=== PATIENT | male | born 1960 | race Caucasian/White ===

== ENCOUNTER → 2018-05-01 | Outpatient (REF) | payer BC ==
[2018-05-01 19:01] LABS: HEMATOCRIT 46.1 % (42.0-52.0); HEMOGLOBIN 15.8 g/dl (13.5-17.5); MEAN CORPUSCULAR HEMOGLOBIN 30.9 pg (27.0-33.0); MEAN CORPUSCULAR HGB CONC 34.3 g/dl (32.0-36.5); MEAN CORPUSCULAR VOLUME 90.2 fl (80.0-96.0); PLATELET COUNT, AUTOMATED 262 10^3/uL (150-450); RED BLOOD COUNT 5.11 10^6/uL (4.30-6.10); RED CELL DISTRIBUTION WIDTH 12.2 % (11.5-14.5); WHITE BLOOD COUNT 9.3 10^3/uL (4.0-10.0)
[2018-05-01 19:09] LABS: ALBUMIN 3.8 GM/DL (3.2-5.2); ALBUMIN/GLOBULIN RATIO 1.15 (1.00-1.93); ALKALINE PHOSPHATASE 96 U/L (45-117); ALT/SGPT 36 U/L (12-78); ANION GAP 8 MEQ/L (8-16); AST/SGOT 21 U/L (7-37); BILIRUBIN,TOTAL 0.4 MG/DL (0.2-1.0); BLOOD UREA NITROGEN 14 MG/DL (7-18); CALCIUM LEVEL 8.5 MG/DL (8.5-10.1); CARBON DIOXIDE LEVEL 29 MEQ/L (21-32); CHLORIDE LEVEL 100 MEQ/L (98-107); CHOLESTEROL LEVEL 195 MG/DL (<200); CHOLESTEROL RISK RATIO 3.979 (<5); CREATININE FOR GFR 1.18 MG/DL (0.70-1.30); FREE T4 1.11 NG/DL (0.76-1.46); GLOMERULAR FILTRATION RATE > 60.0 (>56); GLUCOSE, FASTING 88 MG/DL (70-100); HDL CHOLESTEROL 49 MG/DL (>40); LDL CHOLESTEROL 68 MG/DL (<100); NON-HDL-C 146 MG/DL; POTASSIUM SERUM 4.5 MEQ/L (3.5-5.1); PSA SCREENING 1.1 NG/ML (< 4.0); SODIUM LEVEL 137 MEQ/L (136-145); THYROID STIMULATING HORMONE 0.503 uIU/ML (0.358-3.740); TOTAL PROTEIN 7.1 GM/DL (6.4-8.2); TRIGLYCERIDES LEVEL 392 MG/DL (<150)
[2018-05-06 00:06] LABS: TESTOSTERONE FREE (DIRECT) 5.4 pg/mL (7.2-24.0)
== END ==
LOC: M SFHCADAM 13:49
DX: K21.9 Gastro-esophageal reflux disease without esophagitis (principal); E78.5 Hyperlipidemia, unspecified; Z12.5 Encounter for screening for malignant neoplasm of prostate; N52.9 Male erectile dysfunction, unspecified

== ENCOUNTER 2018-12-10 12:05 | Emergency (ER) | payer BC ==
[2018-12-10] MEDS ORDERED: KETOROLAC 30 MG/ML VIAL (J1885) IV ONE (14:00)
[2018-12-10] MEDS ORDERED: NS 1,000 ML IV ONE (14:00)
[2018-12-10] MEDS ORDERED: ONDANSETRON 4MG/2ML VIAL (J2405) IV ONE (14:00)
[2018-12-10 14:19] LABS: BILIRUBIN, URINE MANUAL NEGATIVE (NEGATIVE); GLUCOSE, URINE (UA) MANUAL NEGATIVE (NEGATIVE); KETONE, URINE MANUAL NEGATIVE (NEGATIVE); UROBILINOGEN, URINE MANUAL NORMAL (NORMAL)
[2018-12-10 14:47] LABS: BASO # 0.1 10^3/uL (0.0-0.2); BASO % 0.7 % (0.0-1.0); EOS # 0.1 10^3/uL (0.0-0.50); EOS % 0.5 % (0.0-3.0); HEMATOCRIT 48.5 % (42.0-52.0); HEMOGLOBIN 16.8 g/dl (13.5-17.5); LYMPH # 1.7 10^3/uL (1.5-4.5); LYMPH % 12.4 % (24.0-44.0); MEAN CORPUSCULAR HEMOGLOBIN 31.6 pg (27.0-33.0); MEAN CORPUSCULAR HGB CONC 34.6 g/dl (32.0-36.5); MEAN CORPUSCULAR VOLUME 91.2 fl (80.0-96.0); MONO # 0.9 10^3/uL (0.0-0.8); MONO % 6.2 % (0.0-5.0); NEUTROPHILS # 10.8 10^3/uL (1.8-7.7); NEUTROPHILS % 78.7 % (36.0-66.0); PLATELET COUNT, AUTOMATED 297 10^3/uL (150-450); RED BLOOD COUNT 5.32 10^6/uL (4.30-6.10); WHITE BLOOD COUNT 13.7 10^3/uL (4.0-10.0)
[2018-12-10 15:06] LABS: ALBUMIN 3.5 GM/DL (3.2-5.2); ALT/SGPT 30 U/L (12-78); BILIRUBIN,DIRECT 0.2 MG/DL (0.0-0.2); BILIRUBIN,TOTAL 0.8 MG/DL (0.2-1.0); BLOOD UREA NITROGEN 12 MG/DL (7-18); CALCIUM LEVEL 8.6 MG/DL (8.8-10.2); CARBON DIOXIDE LEVEL 24 MEQ/L (21-32); CHLORIDE LEVEL 101 MEQ/L (98-107); CREATININE FOR GFR 1.07 MG/DL (0.70-1.30); GLOMERULAR FILTRATION RATE > 60.0 (>49); GLUCOSE, FASTING 112 MG/DL (70-100); LIPASE 69 U/L (73-393); POTASSIUM SERUM 4.4 MEQ/L (3.5-5.1); SODIUM LEVEL 133 MEQ/L (136-145); TOTAL PROTEIN 6.7 GM/DL (6.4-8.2)
[2018-12-10] MEDS ORDERED: ISOVUE-370 76% 100ML VIAL (Q9967) As Ordered ONE (15:23)
--- NOTE | 2018-12-10 16:08 | REP ---
CT of the abdomen and pelvis with IV contrast, without bowel contrast: There are no comparisons. The visualized lung pinedo are unremarkable. There is a small volume of abdominal ascites at the lateral margins of the liver and spleen and in the dependent pelvis. There is wall thickening of the descending colon, sigmoid colon and rectosigmoid colon. This is compatible with colitis in the appropriate clinical setting. There is no pneumoperitoneum. The hepatic parenchyma, gallbladder, pancreas, spleen, adrenals, kidneys and abdominal aorta are unremarkable. Pelvis: The bladder is unremarkable. There is no adenopathy. Impression: The findings compatible with colitis of the descending colon and sigmoid colon in the appropriate clinical setting. There is ascites as described. Electronically Signed by Pawel Diallo MD 12/10/2018 04:00 P
[2018-12-10] MEDS ORDERED: CIPR-249 PO (16:20)
[2018-12-10] MEDS ORDERED: FLAG500T PO (16:20)
[2018-12-10] MEDS ORDERED: ZOFR4TAB16 PO (16:20)
[2018-12-10 17:23] VITALS: BP 133/89
== END 2018-12-10 17:34 | disposition home or self-care (01) ==
LOC: M ED 12:05
DX: K52.9 Noninfective gastroenteritis and colitis, unspecified (principal); R18.8 Other ascites; K21.9 Gastro-esophageal reflux disease without esophagitis; H81.49 Vertigo of central origin, unspecified ear
CPT/HCPCS: 74177; 80048; 80076; 83690; 85025; 87507; 96374; 96375; 99284; J1885; J2405; Q9967

== ENCOUNTER → 2018-12-26 | Outpatient (CLI) | payer BC ==
[~2018-12-26] MED LIST: CIPR-249 PO; FLAG500T PO; ZOFR4TAB16 PO
--- NOTE | 2018-12-26 10:34 | REP ---
Clinical: Cough . Comparison: 03/10/2015 . Technique: PA and lateral. Findings: The mediastinum and cardiac silhouette are normal. The lung pinedo demonstrate chronic-appearing changes without acute consolidation, effusion, or pneumothorax. The skeletal structures are intact and normal. Impression: 1. Chronic-appearing changes. If the patient remains symptomatic consider chest CT for further investigation. Electronically Signed by Surinder Joiner MD 12/26/2018 10:26 A
== END ==
LOC: M ADAMS 09:48
PROVIDERS: ATTEND Family Medicine
DX: R05 Cough (principal)

== ENCOUNTER 2019-02-27 10:18 | Inpatient (IN) | payer BC ==
[~2019-02-27] VITALS: Ht 185.4 cm; Wt 88.6 kg
[2019-02-27 11:13] LABS: BASO # 0.1 10^3/uL (0.0-0.2); BASO % 0.7 % (0.0-1.0); EOS # 0.1 10^3/uL (0.0-0.5); EOS % 0.5 % (0.0-3.0); LYMPH # 1.8 10^3/uL (1.5-5.0); LYMPH % 11.3 % (24.0-44.0); MEAN CORPUSCULAR HEMOGLOBIN 31.9 pg (27.0-33.0); MEAN CORPUSCULAR VOLUME 91.1 fl (80.0-96.0); MONO # 1.1 10^3/uL (0.0-0.8); NEUTROPHILS # 12.3 10^3/uL (1.5-8.5); NEUTROPHILS % 79.6 % (36.0-66.0); PLATELET COUNT, AUTOMATED 329 10^3/uL (150-450); RED BLOOD COUNT 6.21 10^6/uL (4.30-6.10); WHITE BLOOD COUNT 15.5 10^3/uL (4.0-10.0)
[2019-02-27 11:16] LABS: HEMATOCRIT 56.6 % (42.0-52.0); HEMOGLOBIN 19.8 g/dl (13.5-17.5)
[2019-02-27 11:45] LABS: ALBUMIN 3.8 GM/DL (3.2-5.2); BILIRUBIN,DIRECT 0.2 MG/DL (0.0-0.2); BILIRUBIN,TOTAL 0.7 MG/DL (0.2-1.0); CALCIUM LEVEL 9.3 MG/DL (8.8-10.2); CREATININE FOR GFR 1.47 MG/DL (0.70-1.30); POTASSIUM SERUM 4.6 MEQ/L (3.5-5.1)
[2019-02-27] MEDS ORDERED: MORPHINE 4 MG/ML 1ML VIAL/SYRINGE (J2270) IV ONE (12:30)
[2019-02-27] MEDS ORDERED: NS 1,000 ML IV ONE (12:30)
[2019-02-27] MEDS ORDERED: ONDANSETRON 4MG/2ML VIAL (J2405) IV ONE (12:30)
[2019-02-27] MEDS ORDERED: ISOVUE-370 76% 100ML VIAL (Q9967) As Ordered ONE (12:32)
[2019-02-27] MEDS ORDERED: NS 1,000 ML IV SCH (15:30)
--- NOTE | 2019-02-27 15:34 | REP ---
HISTORY: Lower abdominal pain. COMPARISON: 11/30/2016 which showed findings consistent with left-sided colitis. CONTRAST: 100 mL Isovue-370. There is no change in the lung bases. There are no pleural or pericardial effusions. There is free fluid in the abdomen which has increased slightly compared to the prior exam. The liver, gallbladder, spleen, pancreas, adrenal glands and kidneys are within normal limits and unchanged. The abdominal aorta and periaortic regions are within normal limits and unchanged. The bowel loops are noncontrast opacified limiting evaluation of them. The descending colon mural thickening seen on the prior examination appears to have improved. The degree of pericolonic fatty infiltration involving the descending colon has improved. There is colonic diverticulosis, status quo. There is no evidence of free air. CT PELVIS: The dangelo of the sigmoid colon appear thickened and there is perisigmoidal fatty infiltration. The appearance of this has increased compared to the prior exam. There is free fluid in the pelvis, status quo. There is no evidence of pelvic sidewall or inguinal adenopathy. Bone window technique throughout the exam, shows no change in the osseous structures. IMPRESSION: 1. The amount of free fluid in the abdomen has increased compared to the prior exam. 2. Although the mural thickening seen involving the descending colon has improved, the findings involving the sigmoid colon have worsened. 3. Other findings as described above. Electronically Signed by Faheem Masters DO 02/27/2019 04:33 P
[2019-02-27] MEDS ORDERED: CIPROFLOXACIN 400 MG in IV 1 EA IV ONE (18:00)
[2019-02-27] MEDS: NS 1,000 ML IV SCH ×2 (18:21→23:39)
[2019-02-27] MEDS ORDERED: metroNIDAZOLE 500 MG in IV 1 EA IV ONE (19:00)
[2019-02-27 21:01] VITALS: BP 148/87
--- NOTE | 2019-02-27 21:01 | HPE ---
DATE OF ADMISSION: 02/27/2019 CHIEF COMPLAINT: Colitis. HISTORY: Gonzalo Pollock was admitted with colitis. He had been watery stools, lower abdominal pain for about 24 hours, admitted with the same on 12/10/2018. Gastrointestinal (GI) panel was negative. Treated with Cipro and Flagyl. Returned to normal. He has had no rectal bleeding or passing any pus in his stool, but he has had mucousy, watery stool. He had a normal colonoscopy 2013 and 2015 with adenomatous colon polyps, retrieved on both occasions. This was done by Dr. Hung. 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 He had vertigo attack 2014. He had a normal stress test January 2017. He has a history of erectile dysfunction, for which he uses Cialis or Viagra. MEDICATIONS: Cialis 20 mg as needed. REVIEW OF SYSTEMS: As above, otherwise negative. FAMILY HISTORY: Noncontributory. PHYSICAL EXAMINATION: VITAL SIGNS: Per flow sheet. Alert, conversant in no distress. Pupils equal, round, reactive to light. Tympanic membranes (TMs) and oropharynx benign. NECK: No masses. LUNGS: Clear. HEART: Regular rate and rhythm without murmur. ABDOMEN: Soft, mildly tender in both lower quadrants, more right than the left. No guarding, rebound, or referred pain. EXTREMITIES: No clubbing, cyanosis, or edema. Normal strength in the arms and legs. No warmth, redness or swelling in his joints. No diagnostic skin rashes. LABORATORY DATA: Sodium 135, potassium 4.6, BUN 18, glucose 140. White count 15.5, hemoglobin 19.8, platelets 329 (baseline hemoglobin around 16). CT scan of the abdomen and pelvis shows free fluid in the pelvis, mural thickening involving the descending colon has improved compared to previous CT from November 2018, but the thickening in the sigmoid colon has increased. IMPRESSION: 1. Colitis. Etiology is unknown. Suspect he was developing some inflammatory bowel disease. I ordered an inflammatory bowel disease panel as well as gastrointestinal (GI) (discussed with Dr. Hung). Will treat him with Cipro and Flagyl pending results of GI panel. 2. Polycythemia. I think this reflects his level of volume depletion, and I have ordered some IV saline for him. PLAN: Hydration, antibiotic therapy, and GI consult with a presumed endoscopy next week.
[2019-02-27] MEDS ORDERED: ACETAMINOPH W/CODEINE #3 TAB UD PO PRN (21:15)
[2019-02-28] MEDS: metroNIDAZOLE 500 MG in IV 1 EA IV SCH ×3 (04:09→19:56)
[2019-02-28] MEDS: NS 1,000 ML IV SCH ×4 (04:09→19:56)
[2019-02-28] MEDS: CIPROFLOXACIN 400 MG in IV 1 EA IV SCH ×2 (05:29→17:32)
[2019-02-28 06:25] VITALS: BP 115/72
[2019-02-28 07:29] LABS: HEMATOCRIT 40.2 % (42.0-52.0); MEAN CORPUSCULAR HEMOGLOBIN 30.7 pg (27.0-33.0); MEAN CORPUSCULAR HGB CONC 33.3 g/dl (32.0-36.5); RED BLOOD COUNT 4.37 10^6/uL (4.30-6.10)
[2019-02-28 07:44] LABS: HEMOGLOBIN 13.4 g/dl (13.5-17.5); PLATELET COUNT, AUTOMATED 208 10^3/uL (150-450)
[2019-02-28 07:45] LABS: BLOOD UREA NITROGEN 14 MG/DL (7-18); CALCIUM LEVEL 7.5 MG/DL (8.8-10.2); CARBON DIOXIDE LEVEL 27 MEQ/L (21-32); CHLORIDE LEVEL 106 MEQ/L (98-107); CREATININE FOR GFR 1.11 MG/DL (0.70-1.30); GLOMERULAR FILTRATION RATE > 60.0 (>49); GLUCOSE, FASTING 107 MG/DL (70-100); POTASSIUM SERUM 3.7 MEQ/L (3.5-5.1); SODIUM LEVEL 138 MEQ/L (136-145)
[2019-02-28] MEDS ORDERED: FLUBLOK(EGG FREE)(QUAD)INFLUENZA VACC 0.5ML SYRINGE (90682)18YRS&OLDER IM ONE (09:00)
[2019-02-28 10:00] VITALS: BP 114/73
--- NOTE | 2019-02-28 10:29 | CR ---
DATE OF CONSULTATION: 02/28/2019 INPATIENT REQUESTING PHYSICIAN: Dr. Rolf Fuentes. REASON FOR CONSULTATION: Abdominal pain, diarrhea, colitis. HISTORY OF PRESENT ILLNESS: Mr. Pollock is a patient known to me from previous endoscopies who is overall quite healthy. He had an episode of some type of a colitis back in October 2016 when he presented to the emergency room with abdominal pain and nonbloody diarrhea for 1-2 days. He was diagnosed with a nonspecific colitis which he was treated with Cipro and Flagyl empirically and promptly improved as an outpatient within 2-3 days. Since that time, he has had no issues with his GI tract. However, on 02/27/2019 in the morning, he awoke with severe abdominal cramping and nonbloody diarrhea. He returns to the emergency room and a repeat CT once again is suggestive of a colitis. I note that nobody else in the family is ill. He does not have chronic GI problems in general except for the episode in October earlier this year. PAST MEDICAL HISTORY: Unremarkable. MEDICATIONS: - as needed Cialis FAMILY HISTORY: Unremarkable. REVIEW OF SYSTEMS: Unremarkable. PHYSICAL EXAMINATION: Temperature 98.6, heart rate is 88, respirations 14-16. General: He is awake, alert, oriented times three in mild abdominal distress but nontoxic in appearance. Head, eyes, ears, nose and Throat: Grossly without abnormality. Neck: Supple. No lymphadenopathy, thyromegaly. Chest is clear bilaterally. Heart is regular rate and rhythm, S1, S2. No murmurs or gallops. Abdomen is soft, mild tenderness diffusely. There is no rebound tenderness or masses felt. Rectal: Examination is deferred. LABORATORY FINDINGS: WBC is 15.5, hemoglobin 19.8, RDW is 12.7, MCV is 91, platelet count is 329. Sodium 135, potassium 4.6, chloride 101, BUN 18, creatinine 1.47. Liver enzymes are normal. Lipase is normal. GI panel is positive for enteropathogenic E-coli. CT abdomen and pelvis dated 02/27/2019: Impression: 1. The amount of free fluid in the abdomen has increased compared to prior exam. 2. Although the mural thickening seen involving the descending colon has improved, the findings involving the sigmoid colon have worsened. 3. Other findings as described above. IMPRESSION: 1. Recurrent colitis per stool testing suspicious for infectious. RECOMMENDATIONS: 1. IV antibiotics, we will see progress on antibiotics in the next 2-3 days and decide if colonoscopy indicated. The patient has no significant GI history. However, these two successive episodes of apparent colitis may need to be evaluated further to rule out a chronic inflammatory process if antibiotics do not provide prompt relief of his symptoms.
[2019-02-28 16:39] VITALS: BP 136/83
--- NOTE | 2019-02-28 17:43 | IPNPDOC ---
Subjective Date Seen The patient was seen on 02/28/19. Subjective Chief Complaint/HPI Mr. Pollock reports that his abdominal pain is improved from where it was the day before. He still is having significant pain though. Dr. Moffett did see him today and felt that this was most likely colitis related to the enteropathogenic Escherichia coli. If he is not improved after antibiotic treatment he will consider an endoscopic procedure, but right now he is not planning. General: Denies: Normal Appetite Constitutional: Denies: Chills, Fever Pulmonary: Denies: Dyspnea, Cough Cardiovascular: Denies: Chest Pain, Palpitations Gastrointestinal: Reports: Abdominal Pain; Denies: Vomiting Psych: Reports: Mood Normal Objective Physical Examination General Exam: Positive: Alert, Cooperative (laying in bed watching television when I entered the room), No Acute Distress Eye Exam: Positive: Conjunctiva & lids normal; Negative: Sclera icteric ENT Exam: Positive: Mucous membr. moist/pink Neck Exam: Positive: Supple; Negative: Lymphadenopathy Chest Exam: Positive: Clear to auscultation, Normal air movement Heart Exam: Positive: Rate Normal, Normal S1, Normal S2; Negative: Murmurs Abdomen Exam: Positive: Normal bowel sounds, Soft, Tenderness (slight tenderness on deeper palpation of the left abdomen) Extremity Exam: Negative: Edema Psych Exam: Positive: Mood NL, Oriented x 3 Assessment /Plan Problems (1) Colitis due to Escherichia coli Status: Acute Response to Treatment: Improving Discussed With: Nurse, Polymer Engineer, Patient Problem Specific Plan: Monitor Clinically Problem Text: He seems to making good progress with medical treatment. We'll continue his IV antibiotics for now. If he is doing better tomorrow we'll consider changing him to by mouth antibiotics. (2) Dehydration Status: Resolved Problem Text: He's done remarkably well with rehydration. His renal function is now normalized. Plan/VTE VTE Prophylaxis Ordered?: No (patient is quite active around the room) VTE Exclusion Mechanical Proph: Low Risk for VTE VTE Exclusion Pharmacological: At Low Risk for VTE VS, I&O, 24H, Fishbone Vital Signs/I&O Vital Signs Date Time Temp Pulse Resp B/P (MAP) Pulse Ox O2 Delivery O2 Flow Rate FiO2 02/28/19 16:39 70 18 136/83 (100) 96 02/28/19 14:00 98.9 02/27/19 20:21 Room Air I&O- Last 24 Hours up to 6 AM 02/28/19 06:00 Intake Total 3770 ml Output Total 300 ml Balance 3470 ml Laboratory Data 24H LABS Laboratory Tests 2 02/28/19 06:50: Nucleated Red Blood Cells % (auto) 0.0, Anion Gap 5L, Glomerular Filtration Rate > 60.0, Blood Urea Nitrogen 14, Creatinine 1.11, Sodium Level 138, Potassium Level 3.7, Chloride Level 106, Carbon Dioxide Level 27, Calcium Level 7.5#L CBC/BMP Laboratory Tests 02/28/19 06:50 Red Blood Count 4.37, Mean Corpuscular Volume 92.0, Mean Corpuscular Hemoglobin 30.7, Mean Corpuscular Hemoglobin Concent 33.3, Red Cell Distribution Width 12.4, Calcium Level 7.5 #L Microbiology Microbiology 02/27/19 Gastrointestinal Tract Panel (PCR) - Final, Complete Enteropathogenic E.coli 02/27/19 Blood Culture - Preliminary, Resulted No growth after 24 hours . All specim... 02/27/19 Blood Culture - Preliminary, Resulted No growth after 24 hours . All specim... Keith Lizama MD Feb 28, 2019 17:43
[2019-02-28 22:00] VITALS: BP 124/76
[2019-03-01] MEDS: NS 1,000 ML IV SCH ×5 (01:54→20:04)
[2019-03-01 02:00] VITALS: BP 140/82
[2019-03-01] MEDS: metroNIDAZOLE 500 MG in IV 1 EA IV SCH ×3 (03:41→20:03)
[2019-03-01] MEDS: CIPROFLOXACIN 400 MG in IV 1 EA IV SCH ×2 (05:26→17:18)
[2019-03-01 06:00] VITALS: BP 148/84
[2019-03-01 07:40] LABS: HEMATOCRIT 39.3 % (42.0-52.0); HEMOGLOBIN 13.2 g/dl (13.5-17.5); MEAN CORPUSCULAR HEMOGLOBIN 31.1 pg (27.0-33.0); MEAN CORPUSCULAR HGB CONC 33.6 g/dl (32.0-36.5); MEAN CORPUSCULAR VOLUME 92.5 fl (80.0-96.0); PLATELET COUNT, AUTOMATED 185 10^3/uL (150-450); RED BLOOD COUNT 4.25 10^6/uL (4.30-6.10); WHITE BLOOD COUNT 7.8 10^3/uL (4.0-10.0)
[2019-03-01 07:55] LABS: BLOOD UREA NITROGEN 8 MG/DL (7-18); CALCIUM LEVEL 7.8 MG/DL (8.8-10.2); CARBON DIOXIDE LEVEL 28 MEQ/L (21-32); CHLORIDE LEVEL 106 MEQ/L (98-107); CREATININE FOR GFR 1.03 MG/DL (0.70-1.30); GLOMERULAR FILTRATION RATE > 60.0 (>49); GLUCOSE, FASTING 92 MG/DL (70-100); POTASSIUM SERUM 3.4 MEQ/L (3.5-5.1); SODIUM LEVEL 139 MEQ/L (136-145)
[2019-03-01 10:00] VITALS: BP 147/90
[2019-03-01 14:00] VITALS: BP 140/87
[2019-03-01] MEDS ORDERED: POTASSIUM CHLORIDE 10 MEQ SR TABLET PO ONE (21:15)
[2019-03-01 22:00] VITALS: BP 155/89
--- NOTE | 2019-03-01 22:06 | IPNPDOC ---
Subjective Date Seen The patient was seen on 03/01/19. Subjective Chief Complaint/HPI Mr. Pollock reports that he is "almost back to 100%" today. He is getting quite hungry and would like to be advanced from his clear liquid diet. General: Reports: Normal Appetite Pulmonary: Denies: Dyspnea, Cough Cardiovascular: Denies: Chest Pain, Palpitations Psych: Reports: Mood Normal Objective Physical Examination General Exam: Positive: Alert, Cooperative (moving around his room with the IV pole in tow when I entered the room), No Acute Distress Eye Exam: Positive: Conjunctiva & lids normal; Negative: Sclera icteric ENT Exam: Positive: Mucous membr. moist/pink Neck Exam: Positive: Supple; Negative: Lymphadenopathy Chest Exam: Positive: Clear to auscultation, Normal air movement Heart Exam: Positive: Rate Normal, Normal S1, Normal S2; Negative: Murmurs Abdomen Exam: Positive: Normal bowel sounds, Soft; Negative: Tenderness Extremity Exam: Negative: Edema Psych Exam: Positive: Mood NL, Oriented x 3 Assessment /Plan Problems (1) Colitis due to Escherichia coli Status: Acute Response to Treatment: Improving Discussed With: Nurse, Patient Problem Specific Plan: Monitor Clinically, Repeat Labs Problem Text: I'm changing him to oral antibiotics starting tomorrow. I think he may be dischargeable tomorrow or the next day. (2) Dehydration Status: Resolved Problem Text: He's done remarkably well with rehydration. His renal function is now normalized. Plan/VTE VTE Prophylaxis Ordered?: No (patient is quite active around the room) VTE Exclusion Mechanical Proph: Low Risk for VTE VTE Exclusion Pharmacological: At Low Risk for VTE VS, I&O, 24H, Fishbone Vital Signs/I&O Vital Signs Date Time Temp Pulse Resp B/P (MAP) Pulse Ox O2 Delivery O2 Flow Rate FiO2 03/01/19 14:00 98.6 73 18 140/87 (104) 98 02/27/19 20:21 Room Air I&O- Last 24 Hours up to 6 AM 03/01/19 06:00 Intake Total 4000 ml Balance 4000 ml Laboratory Data 24H LABS Laboratory Tests 2 03/01/19 07:10: Nucleated Red Blood Cells % (auto) 0.0, Anion Gap 5L, Glomerular Filtration Rate > 60.0, Blood Urea Nitrogen 8, Creatinine 1.03, Sodium Level 139, Potassium Level 3.4L, Chloride Level 106, Carbon Dioxide Level 28, Calcium Level 7.8L CBC/BMP Laboratory Tests 03/01/19 07:10 Red Blood Count 4.25 L, Mean Corpuscular Volume 92.5, Mean Corpuscular Hemoglobin 31.1, Mean Corpuscular Hemoglobin Concent 33.6, Red Cell Distribution Width 12.1, Calcium Level 7.8 L Microbiology Microbiology 02/27/19 Gastrointestinal Tract Panel (PCR) - Final, Complete Enteropathogenic E.coli 02/27/19 Blood Culture - Preliminary, Resulted No Growth after 48 hours. All Specime... 02/27/19 Blood Culture - Preliminary, Resulted No Growth after 48 hours. All Specime... Keith Lizama MD Mar 01, 2019 22:06
[2019-03-02 02:00] VITALS: BP 155/89
[2019-03-02 06:00] VITALS: BP 151/88
[2019-03-02] MEDS ORDERED: CIPROFLOXACIN 500 MG TAB PO SCH (06:00)
[2019-03-02 06:27] LABS: HEMATOCRIT 36.6 % (42.0-52.0); HEMOGLOBIN 13.1 g/dl (13.5-17.5); MEAN CORPUSCULAR HGB CONC 35.8 g/dl (32.0-36.5); MEAN CORPUSCULAR VOLUME 89.5 fl (80.0-96.0); PLATELET COUNT, AUTOMATED 204 10^3/uL (150-450); RED BLOOD COUNT 4.09 10^6/uL (4.30-6.10)
[2019-03-02 06:59] LABS: BLOOD UREA NITROGEN 3 MG/DL (7-18); CALCIUM LEVEL 8.4 MG/DL (8.8-10.2); CARBON DIOXIDE LEVEL 28 MEQ/L (21-32); CHLORIDE LEVEL 107 MEQ/L (98-107); GLOMERULAR FILTRATION RATE > 60.0 (>49); GLUCOSE, FASTING 102 MG/DL (70-100); POTASSIUM SERUM 3.5 MEQ/L (3.5-5.1); SODIUM LEVEL 140 MEQ/L (136-145)
[2019-03-02] MEDS ORDERED: metroNIDAZOLE (FLAGYL) 500 MG TAB PO SCH (09:00)
[2019-03-02] MEDS ORDERED: CIPR-249 PO (09:29)
[2019-03-02] MEDS ORDERED: PROBCAP14 PO (09:29)
[2019-03-02] MEDS ORDERED: FLAG500T PO (09:29)
--- NOTE | 2019-03-02 10:16 | DSES ---
DATE OF ADMISSION: 02/27/2019 DATE OF DISCHARGE: PRIMARY CARE PROVIDER: Dr. Rolf Fuentes ATTENDING: Dr. John Lockwood HISTORY: This is a 58-year-old male patient who presented to [facility] emergency room where he had had abdominal pain and watery stools for more than 24 hours. He was admitted for the same back in November. GI panel was negative then. He was treated with Cipro and Flagyl and returned to normal. Recently again having mucusy watery stool. He was admitted to the hospital for the same. He had repeat GI panel that showed enteropathic E. Coli. He was started on Cipro and Flagyl and seems to be tolerating this well. His abdominal pain as well as his diarrhea has subsided. He will be discharged home on Cipro and Flagyl. He will likely need outpatient followup with GI. He did undergo CT of the abdomen and pelvis which showed free fluid in the abdomen increased compared to his prior CT back in 2017. DISCHARGE DIAGNOSES: 1. Enteropathic E. Coli colitis. 2. Dehydration. DISCHARGE MEDICATIONS: Include ciprofloxacin 500 mg by mouth twice a day times 10 days, Flagyl 500 mg by mouth three times a day times 10 days, Probiotic by mouth twice a day. DISCHARGE PLAN: To follow a BRAT diet, advancing as tolerated. His activity is as tolerated. He will followup with Dr. Fuentes in 1 week.
[2019-03-03 16:47] LABS: Chitobioside Carbohydrat (ACCA 38 units (0-90); Laminaribioside Carbohyd (ALCA 6 units (0-60); Mannobioside Carbohydrat (AMCA 10 units (0-100); Saccharomyces cerevisiae IgG A 24 units (0-50)
== END 2019-03-02 10:36 | disposition home or self-care (01) | DRG 248 ==
LOC: M ED 10:18 → M ED INP 17:30 → M MS5PR 20:39
PROVIDERS: ADMIT Family Medicine; ATTEND Family Medicine
DX: A04.4 Other intestinal Escherichia coli infections (principal); D75.1 Secondary polycythemia; N52.9 Male erectile dysfunction, unspecified; Z79.899 Other long term (current) drug therapy; Z86.010 Personal history of colon polyps; E86.0 Dehydration

== ENCOUNTER 2019-03-23 08:47 | Emergency (ER) | payer BC ==
[~2019-03-23] VITALS: Ht 182.9 cm; Wt 88.6 kg
[~2019-03-23 08:47] MED LIST changes: +PROBCAP14 PO
[2019-03-23 09:48] LABS: BASO # 0.1 10^3/uL (0.0-0.2); BASO % 0.9 % (0.0-1.0); EOS # 0.2 10^3/uL (0.0-0.5); EOS % 2.2 % (0.0-3.0); HEMATOCRIT 47.7 % (42.0-52.0); HEMOGLOBIN 16.7 g/dl (13.5-17.5); LYMPH # 1.8 10^3/uL (1.5-5.0); LYMPH % 20.4 % (24.0-44.0); MEAN CORPUSCULAR VOLUME 88.7 fl (80.0-96.0); MONO # 0.7 10^3/uL (0.0-0.8); MONO % 8.2 % (0.0-5.0); NEUTROPHILS # 6.1 10^3/uL (1.5-8.5); NEUTROPHILS % 67.9 % (36.0-66.0); PLATELET COUNT, AUTOMATED 272 10^3/uL (150-450); RED BLOOD COUNT 5.38 10^6/uL (4.30-6.10)
[2019-03-23] MEDS ORDERED: ISOVUE-370 76% 100ML VIAL (Q9967) As Ordered ONE (10:26)
[2019-03-23] MEDS ORDERED: KETOROLAC 30 MG/ML VIAL (J1885) IV ONE (10:30)
[2019-03-23] MEDS ORDERED: NS 1,000 ML IV ONE (10:30)
--- NOTE | 2019-03-23 10:53 | REP ---
Clinical: Abdominal pain with history of colitis. Technique: Axial contrast enhanced images from the lung bases to the pubic symphysis using 100 ml Isovue 370 intravenous contrast material with coronal and sagittal re-formations. Comparison: 02/27/2019. Findings: Moderate ascites without drainable collection or abscess is again appreciated. There is increased submucosal thickening and pericolonic inflammatory stranding primarily involving the descending through rectosigmoid colon consistent with infectious/inflammatory colitis. No free air to suggest perforation. No bowel obstruction. Small bowel is grossly unremarkable. Liver, spleen, pancreas, gallbladder, bilateral adrenal glands and kidneys are normal / stable. Pelvis demonstrates normal bladder and age appropriate prostate/seminal vesicles. Abdominal aorta and vasculature normal. Musculoskeletal structures demonstrate age-related changes without focal abnormality. Lung bases are clear. Impression: 1. Increased submucosal thickening and pericolonic stranding now involving the entire descending through rectosigmoid colon with stable moderate ascites. Findings consistent with continued infectious/inflammatory colitis. No free air to suggest perforation or evidence for bowel obstruction. Electronically Signed by Surinder Joiner MD 03/23/2019 10:44 A
[2019-03-23 11:31] LABS: APPEARANCE, URINE CLEAR (CLEAR); BACTERIA, URINE AUTO NEGATIVE (NEGATIVE); BILIRUBIN, URINE AUTO NEGATIVE (NEGATIVE); BLOOD, URINE BLOOD NEGATIVE (NEGATIVE); COLOR, URINE YELLOW (YELLOW); GLUCOSE, URINE (UA) AUTO NEGATIVE (NEGATIVE); KETONE, URINE AUTO NEGATIVE (NEGATIVE); LEUKOCYTE ESTERASE, URINE AUTO NEGATIVE (NEGATIVE); NITRITE, URINE AUTO NEGATIVE (NEGATIVE); PROTEIN, URINE AUTO NEGATIVE (NEGATIVE); RBC, URINE AUTO 0 /HPF (0-3); SQUAMOUS EPITHELIAL CELL UR AU 0 /HPF (0-6); UROBILINOGEN, URINE AUTO 0.2 mg/dL (0.0-2.0); WBC, URINE AUTO 0 /HPF (0-3)
[2019-03-23 11:32] LABS: MUCUS, URINE SMALL (NEGATIVE)
[2019-03-23 11:58] LABS: ALBUMIN 3.5 GM/DL (3.2-5.2); BILIRUBIN,DIRECT 0.2 MG/DL (0.0-0.2); BILIRUBIN,TOTAL 0.8 MG/DL (0.2-1.0); TOTAL PROTEIN 6.5 GM/DL (6.4-8.2)
[2019-03-23] MEDS ORDERED: VANC125C3 PO (13:05)
[2019-03-23 13:38] VITALS: BP 146/89
--- NOTE | 2019-03-24 10:43 | ED PDOC ---
Post-Departure Follow-Up dr denis faxed formal report of ct abd/p for fu Aniyah Donnelly MD Mar 24, 2019 10:43
== END 2019-03-23 13:29 | disposition home or self-care (01) ==
LOC: M ED 08:47
DX: A04.71 Enterocolitis due to Clostridium difficile, recurrent (principal)
CPT/HCPCS: 74177; 80047; 80076; 81001; 82150; 83690; 85025; 87507; 96374; 99284; J1885; Q9967

== ENCOUNTER 2019-04-03 07:49 | Day surgery (SDC) | payer BC ==
[~2019-04-03] VITALS: Ht 182.9 cm; Wt 83.5 kg
[~2019-04-03 07:49] MED LIST changes: +LIDOCAINE 2% INJ 100 MG/5 ML SDV (FOR ANES.) As Ordered ONE; +NS 1,000 ML IV ONE; +PROPOFOL 200 MG/20 ML VIAL As Ordered ONE; +VANC125C3 PO
[2019-04-03] MEDS ORDERED: PROPOFOL 200 MG/20 ML VIAL As Ordered ONE (09:08)
--- NOTE | 2019-04-03 09:27 | ROOR ---
Patient Name: Oli Pollock Procedure Date: 04/03/2019 8:56 AM Date of : 1960 Age: 58 Room: [facility] Gender: Male Note Status: Finalized Procedure: Colonoscopy Indications: Abnormal CT of the GI tract, Change in bowel habits Providers: Lonnie HUNG MD Referring MD: Rolf Fuentes MD Requesting Provider: Medicines: Monitored Anesthesia Care Complications: No immediate complications. Procedure: Pre-Anesthesia Assessment: - The heart rate, respiratory rate, oxygen saturations, blood pressure, adequacy of pulmonary ventilation, and response to care were monitored throughout the procedure. The Colonoscope was introduced through the anus and advanced to 10 cm into the ileum. The colonoscopy was performed without difficulty. The patient tolerated the procedure well. The quality of the bowel preparation was good. Findings: The perianal and digital rectal examinations were normal. Multiple medium-mouthed diverticula were found in the entire colon. An area of mildly erythematous mucosa was found in the sigmoid colon. The exam was otherwise without abnormality on direct and retroflexion views. The terminal ileum appeared normal. Biopsies were taken with a cold forceps in the rectum, in the sigmoid colon, in the descending colon, in the transverse colon and in the ascending colon for histology. Impression: - Mild diverticulosis in the entire examined colon. - A few slightly erythematous spots in the sigmoid colon. - The examination was otherwise normal on direct and retroflexion views. (- No colitis is seen on this exam. Findings today are very minimal. CT findings greatly out of proportion of what I see today on colonoscopy) - The examined portion of the ileum was normal. - Biopsies were taken with a cold forceps for histology in the rectum, in the sigmoid colon, in the descending colon, in the transverse colon and in the ascending colon. Recommendation: - Await pathology results. - Dep on biopsy results, will schedule for diagnostic paracentesis or refer for diagnostic laparoscopy--r/o extrinsic process. - Return to my office in 2 weeks. Lonnie Hung MD Lonnie HUNG MD 04/03/2019 9:26:59 AM Electronically signed by Lonnie HUNG MD Number of Addenda: 0 Note Initiated On: 04/03/2019 8:56 AM Estimated Blood Loss: Estimated blood loss: none.
[2019-04-03 09:40] VITALS: BP 175/96
== END 2019-04-03 09:52 | disposition home or self-care (01) ==
LOC: M OPP 07:49
PROVIDERS: ATTEND Internal Medicine Gastroenterology
DX: K63.89 Other specified diseases of intestine (principal); K57.30 Diverticulosis of large intestine without perforation or abscess without bleeding; R19.4 Change in bowel habit; R93.3 Abnormal findings on diagnostic imaging of other parts of digestive tract; Z79.899 Other long term (current) drug therapy; Z87.891 Personal history of nicotine dependence

== ENCOUNTER → 2019-04-15 | Outpatient (CLI) | payer BC ==
[~2019-04-15] MED LIST changes: -LIDOCAINE 2% INJ 100 MG/5 ML SDV (FOR ANES.) As Ordered ONE; -NS 1,000 ML IV ONE; -PROPOFOL 200 MG/20 ML VIAL As Ordered ONE
[2019-04-15 15:27] LABS: BASO # 0.1 10^3/uL (0.0-0.2); BASO % 0.6 % (0.0-1.0); EOS # 0.2 10^3/uL (0.0-0.5); EOS % 2.3 % (0.0-3.0); HEMATOCRIT 44.5 % (42.0-52.0); HEMOGLOBIN 14.9 g/dl (13.5-17.5); LYMPH # 2.4 10^3/uL (1.5-5.0); LYMPH % 24.8 % (24.0-44.0); MEAN CORPUSCULAR HEMOGLOBIN 30.1 pg (27.0-33.0); MEAN CORPUSCULAR HGB CONC 33.5 g/dl (32.0-36.5); MEAN CORPUSCULAR VOLUME 89.9 fl (80.0-96.0); MONO # 0.9 10^3/uL (0.0-0.8); MONO % 9.5 % (0.0-5.0); NEUTROPHILS % 62.3 % (36.0-66.0); PLATELET COUNT, AUTOMATED 285 10^3/uL (150-450); RED BLOOD COUNT 4.95 10^6/uL (4.30-6.10); WHITE BLOOD COUNT 9.7 10^3/uL (4.0-10.0)
[2019-04-15 15:45] LABS: INR 0.99; PROTHROMBIN TIME 12.8 SECONDS (11.8-14.0)
== END ==
LOC: M LAB 14:39
PROVIDERS: ATTEND Internal Medicine Gastroenterology
DX: R93.3 Abnormal findings on diagnostic imaging of other parts of digestive tract (principal)

== ENCOUNTER → 2019-04-21 | Outpatient (CLI) | payer BC ==
[2019-04-21 13:00] VITALS: BP 140/90
--- NOTE | 2019-04-21 13:47 | REP ---
Clinical: Ascites. Technique: Real time dawson scale ultrasound examination using curved array transducer. Findings: Survey images through the abdomen and pelvis demonstrate no significant ascites. Paracentesis was not performed. Impression: No significant ascites. Electronically Signed by Surinder Joiner MD 04/21/2019 01:38 P
== END ==
LOC: M IRPRO 12:49
PROVIDERS: ATTEND Internal Medicine Gastroenterology
DX: R93.3 Abnormal findings on diagnostic imaging of other parts of digestive tract (principal)

== ENCOUNTER → 2019-05-21 | Outpatient (CLI) | payer BC ==
[~2019-05-21] MED LIST changes: +PROHANCE 279.3MG/ML 15ML VIAL (A9576) As Ordered ONE
--- NOTE | 2019-05-21 10:26 | REP ---
MRA ABDOMINAL AORTA: MRA abdominal aorta performed utilizing 3D [id number] imaging, with intravenous administration of 30 mL ProHance. 3D MIP reconstruction images are performed. Abdominal aorta is normal in caliber with no aneurysm. There is no significant narrowing. Celiac, superior mesenteric, inferior mesenteric arteries are widely patent with no stenosis. The main renal arteries are visualized bilaterally and demonstrate no evidence of stenosis. Visualized liver and spleen appear unremarkable. Adrenals, pancreas, and kidneys are unremarkable. I see no periaortic adenopathy. There is no ascites. IMPRESSION: No evidence of mesenteric artery or renal artery stenosis. Abdominal aorta normal in caliber. Electronically Signed by Pawel Bradley MD 05/21/2019 12:29 P
== END ==
LOC: M RAD 08:10
PROVIDERS: ATTEND Internal Medicine Gastroenterology
DX: K55.9 Vascular disorder of intestine, unspecified (principal); R93.3 Abnormal findings on diagnostic imaging of other parts of digestive tract; R18.8 Other ascites
CPT/HCPCS: A9576; C8902

== ENCOUNTER → 2019-06-24 | Outpatient (CLI) | payer BC ==
[~2019-06-24] MED LIST changes: -PROHANCE 279.3MG/ML 15ML VIAL (A9576) As Ordered ONE
[2019-06-24 17:06] LABS: BASO # 0.1 10^3/uL (0.0-0.2); EOS # 0.3 10^3/uL (0.0-0.5); EOS % 2.7 % (0.0-3.0); HEMATOCRIT 43.6 % (42.0-52.0); LYMPH # 2.4 10^3/uL (1.5-5.0); LYMPH % 25.3 % (24.0-44.0); MEAN CORPUSCULAR HEMOGLOBIN 30.8 pg (27.0-33.0); MEAN CORPUSCULAR HGB CONC 34.4 g/dl (32.0-36.5); MEAN CORPUSCULAR VOLUME 89.5 fl (80.0-96.0); MONO # 0.8 10^3/uL (0.0-0.8); MONO % 8.6 % (0.0-5.0); NEUTROPHILS # 5.8 10^3/uL (1.5-8.5); NEUTROPHILS % 61.7 % (36.0-66.0); PLATELET COUNT, AUTOMATED 261 10^3/uL (150-450); RED BLOOD COUNT 4.87 10^6/uL (4.30-6.10); WHITE BLOOD COUNT 9.4 10^3/uL (4.0-10.0)
[2019-06-24 17:40] LABS: ERYTHROCYTE SEDIMENTATION RATE 4 mm/hr (0-20)
[2019-06-24 18:15] LABS: COMPLEMENT C3 92 MG/DL (90-180); COMPLEMENT C4 6 MG/DL (10-40); RHEUMATOID FACTOR QUANT < 10.0 IU/ML (<15.0); THYROGLOBULIN ANTIBODY < 15.0 U/ML (<60.0); THYROID PEROXIDASE ANTIBODY < 28.0 U/ML (<60.0); THYROID STIMULATING HORMONE 0.537 uIU/ML (0.358-3.740); THYROXINE (T4) 11.2 UG/DL (4.5-12.0); TOTAL T3 127.9 NG/DL (60.0-181.0)
== END ==
LOC: M LAB 15:17
PROVIDERS: ATTEND Allergy & Immunology Allergy
DX: T78.3XXA Angioneurotic edema, initial encounter (principal); X58.XXXA Exposure to other specified factors, initial encounter

== ENCOUNTER → 2019-07-07 | Outpatient (CLI) | payer BC | LOC: M LAB 10:11 | PROVIDERS: ATTEND Allergy & Immunology Allergy | DX: T78.3XXA Angioneurotic edema, initial encounter (principal) ==

== ENCOUNTER → 2019-11-10 | Outpatient (REF) | payer BC ==
[~2019-11-10] MED LIST changes: +NORC1TAB7 PO
[2019-11-10 18:03] LABS: HEMOGLOBIN 14.7 g/dl (13.5-17.5); MEAN CORPUSCULAR HGB CONC 34.2 g/dl (32.0-36.5); MEAN CORPUSCULAR VOLUME 90.7 fl (80.0-96.0); PLATELET COUNT, AUTOMATED 238 10^3/uL (150-450); RED BLOOD COUNT 4.74 10^6/uL (4.30-6.10); WHITE BLOOD COUNT 10.4 10^3/uL (4.0-10.0)
[2019-11-10 18:05] LABS: ALBUMIN 3.7 GM/DL (3.2-5.2); ALT/SGPT 38 U/L (12-78); BILIRUBIN,TOTAL 0.5 MG/DL (0.2-1.0); BLOOD UREA NITROGEN 21 MG/DL (7-18); CALCIUM LEVEL 8.6 MG/DL (8.8-10.2); CARBON DIOXIDE LEVEL 29 MEQ/L (21-32); CHLORIDE LEVEL 101 MEQ/L (98-107); CHOLESTEROL LEVEL 201 MG/DL (<200); CHOLESTEROL RISK RATIO 3.654 (<5); CREATININE FOR GFR 1.13 MG/DL (0.70-1.30); GLOMERULAR FILTRATION RATE > 60.0 (>49); GLUCOSE, FASTING 84 MG/DL (70-100); HDL CHOLESTEROL 55 MG/DL (>40); LDL CHOLESTEROL 103 MG/DL (<100); NON-HDL-C 146 MG/DL; POTASSIUM SERUM 4.5 MEQ/L (3.5-5.1); SODIUM LEVEL 137 MEQ/L (136-145); TRIGLYCERIDES LEVEL 217 MG/DL (<150)
== END ==
LOC: M SFHCADAM 13:31
PROVIDERS: ATTEND Family Medicine
DX: R18.8 Other ascites (principal); E78.5 Hyperlipidemia, unspecified; Z12.5 Encounter for screening for malignant neoplasm of prostate
CPT/HCPCS: 80053; 80061; 85027; G0103

== ENCOUNTER 2019-11-22 07:03 | Emergency (ER) | payer BC ==
[~2019-11-22] VITALS: Ht 182.9 cm; Wt 91.2 kg
[~2019-11-22 07:03] MED LIST changes: -NORC1TAB7 PO
[2019-11-22] MEDS ORDERED: C1 ESTERASE INHIBITOR (HUMAN) 2,000 UNIT in IV 1 EA IV ONE (07:45)
[2019-11-22] MEDS ORDERED: C1 ESTERASE INHIBITOR IV ONE (07:45)
[2019-11-22 07:54] LABS: BILIRUBIN, URINE MANUAL NEGATIVE (NEGATIVE); GLUCOSE, URINE (UA) MANUAL NEGATIVE (NEGATIVE); KETONE, URINE MANUAL NEGATIVE (NEGATIVE); UROBILINOGEN, URINE MANUAL NORMAL (NORMAL)
[2019-11-22 08:03] LABS: BASO # 0.1 10^3/uL (0.0-0.2); BASO % 0.7 % (0.0-1.0); EOS # 0.2 10^3/uL (0.0-0.5); EOS % 1.2 % (0.0-3.0); MEAN CORPUSCULAR HEMOGLOBIN 30.4 pg (27.0-33.0); MEAN CORPUSCULAR HGB CONC 34.5 g/dl (32.0-36.5); MONO # 0.9 10^3/uL (0.0-0.8); MONO % 7.3 % (0.0-5.0); NEUTROPHILS % 73.7 % (36.0-66.0); PLATELET COUNT, AUTOMATED 295 10^3/uL (150-450); WHITE BLOOD COUNT 12.2 10^3/uL (4.0-10.0)
[2019-11-22 08:09] LABS: HEMATOCRIT 52.1 % (42.0-52.0); RED BLOOD COUNT 5.92 10^6/uL (4.30-6.10)
[2019-11-22 08:19] LABS: ALBUMIN 3.5 GM/DL (3.2-5.2); ALT/SGPT 38 U/L (12-78); BILIRUBIN,DIRECT 0.2 MG/DL (0.0-0.2); BILIRUBIN,TOTAL 0.8 MG/DL (0.2-1.0); BLOOD UREA NITROGEN 18 MG/DL (7-18); CALCIUM LEVEL 8.9 MG/DL (8.8-10.2); CARBON DIOXIDE LEVEL 22 MEQ/L (21-32); CHLORIDE LEVEL 104 MEQ/L (98-107); CREATININE FOR GFR 1.14 MG/DL (0.70-1.30); GLOMERULAR FILTRATION RATE > 60.0 (>49); GLUCOSE, FASTING 133 MG/DL (70-100); LIPASE 88 U/L (73-393); POTASSIUM SERUM 4.2 MEQ/L (3.5-5.1); SODIUM LEVEL 134 MEQ/L (136-145)
[2019-11-22] MEDS ORDERED: ISOVUE-370 76% 100ML VIAL As Ordered ONE (09:26)
--- NOTE | 2019-11-22 09:54 | REP ---
Clinical: Diffuse abdominal pain and tenderness. Technique: Axial contrast enhanced images from the lung bases to the pubic symphysis using 100 ml Isovue 370 intravenous contrast material with coronal and sagittal re-formations. Comparison: 03/23/2019. Findings: Submucosal thickening with pericolonic inflammatory stranding involves the descending through sigmoid colon and is consistent with infectious/inflammatory colitis. Small amount of associated ascites noted in a perihepatic and open distribution. No bowel obstruction or free air to suggest perforation. Scattered colonic diverticula noted. Remainder of the small and large bowel is grossly unremarkable including normal terminal ileum and appendix in the right lower quadrant. Mild fatty infiltration to the liver suggested. Spleen, pancreas, gallbladder, bilateral adrenal glands and kidneys are normal. Pelvis demonstrates normal bladder and age appropriate prostate/seminal vesicles. No adenopathy. Abdominal aorta and vasculature without aneurysm or dissection. Musculoskeletal structures intact without acute osseous abnormality. Lung bases are clear. Impression: 1. Infectious/inflammatory colitis involving the descending through sigmoid colon with small amount of free fluid. No obstruction or perforation. 2. Scattered colonic diverticula. 3. Mild hepatic steatosis. Electronically Signed by Surinder Joiner MD 11/22/2019 09:45 A
[2019-11-22 10:16] VITALS: BP 125/77
== END 2019-11-22 10:21 | disposition home or self-care (01) ==
LOC: M ED 07:03
DX: R10.84 Generalized abdominal pain (principal); R11.2 Nausea with vomiting, unspecified; R19.7 Diarrhea, unspecified; D84.1 Defects in the complement system; E78.5 Hyperlipidemia, unspecified
CPT/HCPCS: 36415; 74177; 80048; 80076; 83605; 83690; 85025; 87040; 87507; 93041; 94760; 96374; 99285; J0597; Q9967

== ENCOUNTER 2020-03-17 08:31 | Emergency (ER) | payer BC ==
[~2020-03-17] VITALS: Ht 182.9 cm; Wt 93.9 kg
[2020-03-17] MEDS ORDERED: ONDANSETRON 4MG/2ML VIAL IV ONE (09:15)
[2020-03-17] MEDS ORDERED: C1 ESTERASE INHIBITOR (HUMAN) 2,000 UNIT in IV 1 EA IV ONE (09:15)
[2020-03-17 12:46] VITALS: BP 130/87
[2020-03-17] MEDS ORDERED: NORC1TAB7 PO (17:17)
== END 2020-03-17 12:53 | disposition home or self-care (01) ==
LOC: M ED 08:31
DX: D84.1 Defects in the complement system (principal)
CPT/HCPCS: 96374; 96375; 99284; J0597; J2405

== ENCOUNTER → 2022-05-02 | Outpatient (REF) | payer BC ==
[~2022-05-02] MED LIST changes: +NORC1TAB7 PO
[2022-05-02 16:48] LABS: HEMATOCRIT 43.7 % (42.0-52.0); HEMOGLOBIN 14.8 g/dl (13.5-17.5); MEAN CORPUSCULAR HEMOGLOBIN 31.2 pg (27.0-33.0); MEAN CORPUSCULAR HGB CONC 33.9 g/dl (32.0-36.5); MEAN CORPUSCULAR VOLUME 92.2 fl (80.0-96.0); PLATELET COUNT, AUTOMATED 277 10^3/uL (150-450); RED BLOOD COUNT 4.74 10^6/uL (4.30-6.10); WHITE BLOOD COUNT 10.7 10^3/uL (4.0-10.0)
[2022-05-02 17:56] LABS: ALBUMIN 3.9 G/DL (3.2-5.2); ALKALINE PHOSPHATASE 88 U/L (46-116); ALT/SGPT 32 U/L (7.0-40); AST/SGOT 19 U/L (<34); BILIRUBIN,TOTAL 0.3 MG/DL (0.3-1.2); BLOOD UREA NITROGEN 19 MG/DL (9-23); CALCIUM LEVEL 9.4 MG/DL (8.3-10.6); CARBON DIOXIDE LEVEL 26 MMOL/L (20-31); CHLORIDE LEVEL 99 MMOL/L (98-107); CHOLESTEROL LEVEL 186 MG/DL (<200); CHOLESTEROL RISK RATIO 3.77 (<5); CREATININE FOR GFR 1.08 MG/DL (0.70-1.30); FREE T4 1.15 NG/DL (0.89-1.76); GLOMERULAR FILTRATION RATE > 60.0 (>49); GLUCOSE, FASTING 102 MG/DL (74-106); HDL CHOLESTEROL 49.3 MG/DL (>40); LDL CHOLESTEROL 63.7 MG/DL (<100); NON-HDL-C 137 MG/DL; POTASSIUM SERUM 4.8 MMOL/L (3.5-5.1); SODIUM LEVEL 135 MMOL/L (136-145); THYROID STIMULATING HORMONE 1.284 uIU/ML (0.55-4.78); TOTAL PROTEIN 6.7 G/DL (5.7-8.2); TRIGLYCERIDES LEVEL 365 MG/DL (<150)
== END ==
LOC: M SFHCADAM 14:14
PROVIDERS: ATTEND Family Medicine
DX: R03.0 Elevated blood-pressure reading, without diagnosis of hypertension (principal); D84.1 Defects in the complement system; E78.5 Hyperlipidemia, unspecified; Z12.5 Encounter for screening for malignant neoplasm of prostate

== ENCOUNTER → 2022-07-09 | Outpatient (REF) | payer BC ==
[2022-07-09 13:29] LABS: BLOOD UREA NITROGEN 14 MG/DL (9-23); CALCIUM LEVEL 9.2 MG/DL (8.3-10.6); CARBON DIOXIDE LEVEL 28 MMOL/L (20-31); CHLORIDE LEVEL 103 MMOL/L (98-107); CREATININE FOR GFR 1.12 MG/DL (0.70-1.30); GLOMERULAR FILTRATION RATE > 60.0 (>49); GLUCOSE, FASTING 89 MG/DL (74-106); POTASSIUM SERUM 4.4 MMOL/L (3.5-5.1); SODIUM LEVEL 137 MMOL/L (136-145)
== END ==
LOC: M SFHCCLAY 07:05
PROVIDERS: ATTEND Family Medicine
DX: I10 Essential (primary) hypertension (principal)

== ENCOUNTER → 2023-08-02 | Outpatient (REF) | payer MEDICARE | LOC: M SFHCADAM 12:19 | PROVIDERS: ATTEND Family Medicine | DX: R05.9 Cough, unspecified (principal); I10 Essential (primary) hypertension; E78.5 Hyperlipidemia, unspecified; Z12.5 Encounter for screening for malignant neoplasm of prostate; Z11.59 Encounter for screening for other viral diseases; Z13.1 Encounter for screening for diabetes mellitus; Z13.29 Encounter for screening for other suspected endocrine disorder ==

== ENCOUNTER → 2023-08-06 | Outpatient (REF) | payer MEDICARE ==
[2023-08-06 11:47] LABS: HEMATOCRIT 45.5 % (42.0-52.0); HEMOGLOBIN 15.6 g/dl (13.5-17.5); MEAN CORPUSCULAR HEMOGLOBIN 31.1 pg (27.0-33.0); MEAN CORPUSCULAR HGB CONC 34.3 g/dl (32.0-36.5); MEAN CORPUSCULAR VOLUME 90.6 fl (80.0-96.0); PLATELET COUNT, AUTOMATED 254 10^3/uL (150-450); RED BLOOD COUNT 5.02 10^6/uL (4.30-6.10); WHITE BLOOD COUNT 6.1 10^3/uL (4.0-10.0)
[2023-08-06 12:15] LABS: PSA SCREENING 0.99 NG/ML (< 4.00)
[2023-08-06 12:19] LABS: FREE T4 1.22 NG/DL (0.89-1.76); THYROID STIMULATING HORMONE 0.727 uIU/ML (0.55-4.78)
[2023-08-06 12:34] LABS: ALBUMIN 3.7 G/DL (3.2-5.2); ALKALINE PHOSPHATASE 77 U/L (46-116); ALT/SGPT 23 U/L (7.0-40); AST/SGOT 15 U/L (<34); BILIRUBIN,TOTAL 0.5 MG/DL (0.3-1.2); BLOOD UREA NITROGEN 14 MG/DL (9-23); CALCIUM LEVEL 9.2 MG/DL (8.3-10.6); CARBON DIOXIDE LEVEL 31 MMOL/L (20-31); CHLORIDE LEVEL 105 MMOL/L (98-107); CHOLESTEROL LEVEL 179 MG/DL (<200); CHOLESTEROL RISK RATIO 3.57 (<5); CREATININE FOR GFR 1.15 MG/DL (0.70-1.30); GLOMERULAR FILTRATION RATE > 60.0 (>49); GLUCOSE, FASTING 99 MG/DL (74-106); HDL CHOLESTEROL 50.1 MG/DL (>40); LDL CHOLESTEROL 105.5 MG/DL (<100); NON-HDL-C 128.9 MG/DL; POTASSIUM SERUM 4.3 MMOL/L (3.5-5.1); SODIUM LEVEL 137 MMOL/L (136-145); TOTAL PROTEIN 6.9 G/DL (5.7-8.2); TRIGLYCERIDES LEVEL 117 MG/DL (<150)
== END ==
LOC: M SFHCADAM 07:14
PROVIDERS: ATTEND Family Medicine
DX: R05.9 Cough, unspecified (principal); I10 Essential (primary) hypertension; E78.5 Hyperlipidemia, unspecified; Z12.5 Encounter for screening for malignant neoplasm of prostate; Z11.59 Encounter for screening for other viral diseases; Z13.1 Encounter for screening for diabetes mellitus; Z13.29 Encounter for screening for other suspected endocrine disorder
CPT/HCPCS: 80053; 80061; 83036; 84439; 84443; 85027; G0103; G0472

== ENCOUNTER → 2023-08-14 | Outpatient (CLI) | payer MEDICARE | LOC: M RAD 09:06 | PROVIDERS: ATTEND Family Medicine | DX: Z87.891 Personal history of nicotine dependence (principal) ==

== ENCOUNTER 2024-07-27 07:49 | Day surgery (SDC) | payer MEDICARE ==
[~2024-07-27] VITALS: Ht 180.3 cm; Wt 88.6 kg
[~2024-07-27 07:49] MED LIST changes: +CHLO125TA PO; +LIDOCAINE 2% 100MG/5ML SDV (FOR ANES.) As Ordered ONE; +VANC125C13 PO; -VANC125C3 PO; +[UNRECOGNIZED DRUG - CODE]; +propofoL 200 MG/20 ML VIAL As Ordered ONE
[2024-07-27] MEDS ORDERED: GLYCOPYRROLATE INJ 0.2 MG/ML 2 ML VIAL As Ordered ONE (08:22)
[2024-07-27 09:20] VITALS: TEMP 98
[2024-07-27 09:36] VITALS: BP 142/85; O2SAT 98
== END 2024-07-27 09:41 | disposition home or self-care (01) ==
LOC: M OPP 07:49
PROVIDERS: ATTEND Internal Medicine Gastroenterology
DX: K63.5 Polyp of colon (principal); K57.30 Diverticulosis of large intestine without perforation or abscess without bleeding; K64.8 Other hemorrhoids; Z86.0101 Personal history of adenomatous and serrated colon polyps; Z79.899 Other long term (current) drug therapy; I10 Essential (primary) hypertension; D84.1 Defects in the complement system; F17.220 Nicotine dependence, chewing tobacco, uncomplicated
CPT/HCPCS: 45385; 88305; J1596

== ENCOUNTER → 2024-12-08 | Outpatient (CLI) | payer MEDICARE ==
[~2024-12-08] MED LIST changes: -LIDOCAINE 2% 100MG/5ML SDV (FOR ANES.) As Ordered ONE; -propofoL 200 MG/20 ML VIAL As Ordered ONE
== END ==
LOC: M CARPUL 10:22
PROVIDERS: ATTEND Family Medicine
DX: R07.89 Other chest pain (principal)

== ENCOUNTER → 2025-05-25 | Outpatient (REF) | payer MEDICARE ==
[2025-05-25 12:57] LABS: BASO # 0.1 10^3/uL (0.0-0.2); BASO % 0.9 % (0.0-1.0); EOS # 0.2 10^3/uL (0.0-0.5); EOS % 2.7 % (0.0-3.0); LYMPH # 1.8 10^3/uL (1.5-5.0); LYMPH % 25.6 % (24.0-44.0); MONO # 0.7 10^3/uL (0.0-0.8); MONO % 9.8 % (2.0-8.0); NEUTROPHILS # 4.2 10^3/uL (1.5-8.5); NEUTROPHILS % 60.1 % (36.0-66.0); PLATELET COUNT, AUTOMATED 250 10^3/uL (150-450)
[2025-05-25 14:04] LABS: ALT/SGPT 29.0 U/L (7.0-40); AST/SGOT 21.0 U/L (<34); CALCIUM LEVEL 9.6 MG/DL (8.3-10.6); CARBON DIOXIDE LEVEL 32.0 MMOL/L (20-31); CHLORIDE LEVEL 97.0 MMOL/L (98-107); CREATININE FOR GFR 1.06 MG/DL (0.70-1.30); GLOMERULAR FILTRATION RATE 76.9 (>49); POTASSIUM SERUM 4.2 MMOL/L (3.5-5.1); SODIUM LEVEL 136.0 MMOL/L (136-145)
== END ==
LOC: M LABDRAWC 11:45
PROVIDERS: ATTEND Allergy & Immunology Allergy
DX: D84.1 Defects in the complement system (principal)